=== PATIENT | male | born 1990 | race Asian ===

== ENCOUNTER 2023-10-20 21:51 | Emergency (ER) | payer OTHER ==
[~2023-10-20] VITALS: Ht 165.1 cm; Wt 68.1 kg
[2023-10-20] MEDS ORDERED: normal saline 1000ML IV soln IVB ONE (22:05)
[2023-10-20] MEDS ORDERED: LORazepam 2 mg/ml vial IV ONE ×2 (22:20→23:10)
[2023-10-20 22:21] LABS: BASOPHILS % (AUTO) 0.2 % (0-1); EOSINOPHILS % (AUTO) 0.2 % (0-6); HEMATOCRIT 46.8 % (42.0-52.0); HEMOGLOBIN 15.6 g/dl (14.0-17.9); LYMPHOCYTES # (AUTO) 2.5 X10'3 (1.1-4.8); LYMPHOCYTES % (AUTO) 15.5 % (21-51); MEAN CORPUSCULAR HEMOGLOBIN 30.2 PG (27.0-31.0); MEAN CORPUSCULAR HGB CONC 33.3 g/dL (33.0-36.5); MEAN CORPUSCULAR VOLUME 90.7 FL (78-98); MEAN PLATELET VOLUME 8.1 FL (7.4-10.4); MONOCYTES # (AUTO) 0.6 X10'3 (0-0.9); NEUTROPHILS # (AUTO) 12.8 X10'3 (1.8-7.7); NEUTROPHILS % (AUTO) 80.1 % (42-75); PLATELET COUNT 266 X10'3 (140-440); RED BLOOD COUNT 5.16 X10'6 (4.70-6.10); RED CELL DISTRIBUTION WIDTH 13.3 % (11.5-14.5)
[2023-10-20] MEDS ORDERED: normal saline 1000ml 1,000 ML IV ONE (22:25)
[2023-10-20 22:36] LABS: ALANINE AMINOTRANSFERASE 39 U/L (12-78); ALBUMIN 3.9 G/DL (3.4-5.0); ALBUMIN/GLOBULIN RATIO 0.9 (1.1-1.5); ALKALINE PHOSPHATASE 100 IU/L (46-116); ANION GAP 11 (8-16); ASPARTATE AMINO TRANSFERASE 35 U/L (10-37); BILIRUBIN,TOTAL 0.4 MG/DL (0.1-1.0); BLOOD UREA NITROGEN 21 MG/DL (7-18); BUN/CREATININE RATIO 14.5 (10.0-20.0); CALCIUM 9.7 MG/DL (8.5-10.1); CHLORIDE 103 MMOL/L (99-107); CREATININE 1.45 MG/DL (0.60-1.10); ETHANOL < 10 MG/DL (<10); GLUCOSE 154 MG/DL (70-104); POTASSIUM 4.2 MMOL/L (3.5-5.1); SODIUM 138 MMOL/L (135-145); TOTAL CARBON DIOXIDE 24.1 MMOL/L (24-32); TOTAL PROTEIN 8.1 G/DL (6.4-8.2); eCRCL 62 ML/MIN; eGFR 55 ML/MIN
[2023-10-21] MEDS ORDERED: normal saline 1000ml 1,000 ML IV ONE (03:50)
[2023-10-21 05:52] VITALS: BP 121/67; PULSE 107; RESP 16; TEMP 97.7; O2SAT 96
== END 2023-10-21 06:08 ==
LOC: ER 21:52 → EEVIPCON 21:52 → ER 10-21 06:08
DX: T43.651A Poisoning by methamphetamines accidental (unintentional), initial encounter (principal); T18.5XXA Foreign body in anus and rectum, initial encounter; R00.0 Tachycardia, unspecified; R07.89 Other chest pain; R61 Generalized hyperhidrosis; Y92.89 Other specified places as the place of occurrence of the external cause
CPT/HCPCS: 36415; 74176; 80053; 80320; 84484; 85025; 93005; 96374; 96376; 99285; J2060; J7030; 96361; A4314; A4340; C1758